=== PATIENT | male | born 1990 | race Caucasian/White ===

== ENCOUNTER 2017-07-20 09:13 | Emergency (ER) | payer SELFPAY ==
[~2017-07-20] VITALS: Ht 167.6 cm; Wt 110.3 kg
[~2017-07-20 09:13] MED LIST: AZO STANDARD95 MG PO
[2017-07-20] MEDS ORDERED: INDOCIN50 MG PO (10:25)
[2017-07-20 10:49] VITALS: BP 115/72
== END 2017-07-20 10:59 | disposition home or self-care (01) ==
LOC: EME 09:13
DX: M10.9 Gout, unspecified (principal)
CPT/HCPCS: 73630; 99281; 99284